=== PATIENT | female | born 1990 | race Caucasian/White ===

== ENCOUNTER → 2016-11-23 | Outpatient (CLI) | payer BC ==
--- NOTE | 2016-11-23 09:34 | KCIC ---
Complete lumbar spine INDICATION: Low back pain and sacral pain COMPARISON: None FINDINGS: Alignment and curvature is within normal limits. The vertebral body heights are well-maintained. Disc space heights are also within normal limits. The pedicles are intact. Facet joints are well maintained. Sacroiliac joints are open and corticated. IMPRESSION: Negative for compression fracture or malalignment. Electronically signed by: Aime Busby MD (11/23/2016 9:31 AM)
== END | disposition home or self-care (01) ==
LOC: KCIC 08:46
PROVIDERS: ATTEND Nurse Practitioner
DX: M54.5 Low back pain (principal); M53.3 Sacrococcygeal disorders, not elsewhere classified
CPT/HCPCS: 72110